=== PATIENT | male | born 1950 | race Caucasian/White ===

== ENCOUNTER 2017-11-08 16:37 | Observation (INO) | payer OTHER ==
[~2017-11-08] VITALS: Ht 325.1 cm; Wt 76.2 kg
[~2017-11-08 16:37] MED LIST: ASPIR 8181 MG PO; DICYCLOMINE HCL10 MG PO; FENOFIBRATE54 MG PO; FISH OIL WITH1 EACH PO; FLOMAX0.4 MG PO; FLUOXETINE HCL20 MG PO; GABAPENTIN600 MG PO; HYDRALAZINE HCL25 MG PO; ISOSORBIDE MONO30 M1 PO; LISINOPRIL5 MG PO; MEN'S MULTI-VI1 EACH PO; METFORMIN HCL500 MG PO; NORCO 7.5-3251 EACH PO; PANTOPRAZOLE SO40 MG PO; PRAVASTATIN SOD40 MG PO; PREVAGEN PO; VENLAFAXINE HCL50 MG PO; VITAMIN B-121000 MCG PO; VITAMIN B-6100 MG PO; VITAMIN D1000 UNI1 PO; VITAMIN D400 UNIT PO
[2017-11-08] MEDS ORDERED: SODIUM CHLORIDE 0.9% 1000ML 1,000 ML IV STA (16:47)
--- NOTE | 2017-11-08 17:44 | Diagnostic Imaging Report ---
Exam: Head CT without contrast History: Syncope Comparison studies: Included brain from intracranial CTA 01/11/2010. Technique: Axial images were obtained from the skull base to the vertex. Coronal and sagittal images reconstructed from the axial data. Intravenous contrast: None Findings: Scalp: No abnormalities. Bones: No fractures, blastic or lytic lesions. Brain sulci: Mildly prominent for age Ventricles: Moderate compensatory dilatation. No hydrocephalus. Extra-axial spaces: No masses, no fluid collection. Parenchyma: Cortical vascular insults. A few scattered hypodensities in the supratentorial white matter are nonspecific but most compatible with chronic small vessel ischemic changes. Sellar/suprasellar region: No abnormalities. Craniocervical junction: Patent foramen magnum. No Chiari one malformation. Incidental findings: Atherosclerotic calcifications in the carotid siphons. IMPRESSION: 1. No acute intracranial abnormalities. 2. Mild chronic microvascular ischemic changes. 3. Generalized volume loss, slightly greater than expected for age, has progressed since 2009. Signed by: Dr. Francois Ortega M.D. on 11/08/2017 5:41 PM
[2017-11-08 17:50] LABS: BASOPHILS % 0.6 % (0.0-1.0); EOSINOPHILS # (AUTO) 0.1 (0.0-0.4); EOSINOPHILS % 1.8 % (0.0-6.0); HEMATOCRIT 38.3 % (38.2-49.6); HEMOGLOBIN 12.8 g/dL (14.0-18.0); LYMPHOCYTES # (AUTO) 0.9 (1.0-3.2); LYMPHOCYTES % 13.9 % (18.0-39.1); MEAN CORPUSCULAR HGB CONC 33.4 g/dL (31-35); MEAN CORPUSCULAR VOLUME 86.8 fL (81-99); MONOCYTES # (AUTO) 0.5 (0.2-0.8); MONOCYTES % 7.2 % (4.4-11.3); NEUTROPHILS # (AUTO) 5.1 (2.1-6.9); NEUTROPHILS % 75.9 % (38.7-80.0); PLATELET COUNT 291 x10e3/uL (140-360); RED BLOOD COUNT 4.41 x10e6/uL (4.3-5.7); RED CELL DISTRIBUTION WIDTH 14.4 % (11.7-14.4)
[2017-11-08 18:10] LABS: ALANINE AMINOTRANSFERASE 12 IU/L (0-55); ALBUMIN 3.9 g/dL (3.5-5.0); ALBUMIN/GLOBULIN RATIO 1.3 (0.8-2.0); ALKALINE PHOSPHATASE 45 IU/L (40-150); ANION GAP 18.1 mmol/L (8-16); BLOOD UREA NITROGEN 18 mg/dL (7-26); BUN/CREATININE RATIO 11 (6-25); CALCIUM 9.1 mg/dL (8.4-10.2); CARBON DIOXIDE 23 mmol/L (22-29); CHLORIDE 101 mmol/L (98-107); CREATINE KINASE 49 IU/L (30-200); CREATININE, SERUM 1.71 mg/dL (0.72-1.25); EST GLOMERULAR FILTRATION RATE 40 ML/MIN (60-); GLUCOSE 105 mg/dL (74-118); LIPASE 60 U/L (8-78); POTASSIUM 3.1 mmol/L (3.5-5.1); SODIUM 139 mmol/L (136-145)
--- NOTE | 2017-11-08 18:27 | Diagnostic Imaging Report ---
PROCEDURE: Frontal and lateral views of the chest. COMPARISON: Patients [facility], , CHEST SINGLE (PORTABLE), 04/24/2017, 16:06. INDICATIONS: SYNCOPE FINDINGS: Lines/tubes: None. Lungs: The lungs are well inflated and clear. There is no evidence of pneumonia or pulmonary edema. Pleura: There is no pleural effusion or pneumothorax. Heart and mediastinum: The heart and the mediastinum are normal. Bones: No acute bony abnormality. IMPRESSION: 1. No acute cardiopulmonary abnormalities. Jose G Nguyễn M.D. Dictated by: Jose G Nguyễn M.D. on 11/08/2017 at 18:36 Electronically approved by: Jose G Nguyễn M.D. on 11/08/2017 at 18:36
--- NOTE | 2017-11-08 20:21 | Diagnostic Imaging Report ---
EXAM: CT of the abdomen and pelvis WITH contrast HISTORY: Abdominal pain COMPARISON: None. TECHNIQUE: The abdomen and pelvis were scanned utilizing a multidetector helical scanner. Coronal and sagittal reformats are provided. PROTOCOL: Routine IV CONTRAST: 100 cc of Isovue-370. ORAL CONTRAST: Water RADIATION DOSE: Total DLP: 603.26 mGy*cm Estimated effective dose: (DLP x 0.015 x size factor) COMPLICATIONS: None FINDINGS: LOWER THORAX: Bibasilar atelectasis, no consolidative pneumonia. Trace pleural effusions. HEPATOBILIARY: A 9 mm right superior hepatic hypodensity, statistically most likely small cyst. No biliary ductal dilatation. Metallic clips in the right upper quadrant of the abdomen are compatible with prior cholecystectomy. SPLEEN: No splenomegaly. PANCREAS: No focal masses or ductal dilatation. ADRENALS: No discrete adrenal nodule. KIDNEYS/URETERS: No hydronephrosis, stones, or solid mass lesions. PELVIC ORGANS/BLADDER: The visualized pelvic organs appear unremarkable. Numerous radiopaque densities in the region of the prostate, compatible with radiation seeds. PERITONEUM / RETROPERITONEUM: No free air or fluid. LYMPH NODES: No pathologically enlarged lymph node. VESSELS: Diffuse scattered atherosclerotic vascular calcifications. GI TRACT: The stomach is distended, compatible with the provided history of oral hydration. Postsurgical changes in the region of the junction of the small bowel and colon. The distal colonic mucosa appears to slightly enhance diffusely. BONES: No aggressive osseous lesion or acute fracture. Status post vertebral augmentation at T10 and T11. SOFT TISSUES: Unremarkable. IMPRESSION: 1. Findings which may be seen in the setting of a nonspecific colitis. 2. Otherwise, no acute CT abnormality. Signed by: Dr. Kevan Breaux D.O., M.M.M. on 11/08/2017 8:18 PM
[2017-11-08] MEDS ORDERED: SODIUM CHLORIDE 0.9% 50ML 50 ML ONE (20:28)
[2017-11-08] MEDS ORDERED: IOPAMIDOL 370 MG/ML 200 ML INFUS..BTL INJ ONE (20:28)
[2017-11-08] MEDS ORDERED: DEXTROSE 50% SYRINGE 50 ML IV PRN (20:45)
[2017-11-08] MEDS ORDERED: ONDANSETRON HCL INJ 2 MG/ML VIAL IV PRN (20:45)
[2017-11-08] MEDS ORDERED: LEVOFLOXACIN 500MG/D5W 100ML 100 ML IV SCH (20:45)
[2017-11-08] MEDS: METRONIDAZOLE 500MG/NS 100ML 100 ML IV SCH (22:00)
[2017-11-08] MEDS: SODIUM CHLORIDE 0.9% 1000ML 1,000 ML IV SCH (22:51)
[2017-11-08] MEDS: INSULIN REGULAR, HUMAN 100 UNIT/1 ML 3ML VIAL SQ SCH (22:51)
[2017-11-09 00:30] VITALS: BP 159/101
[2017-11-09 01:35] LABS: CREATINE KINASE MB 0.4 ng/mL (0.00-5.00)
[2017-11-09 02:58] VITALS: BP 159/95
[2017-11-09] MEDS: METRONIDAZOLE 500MG/NS 100ML 100 ML IV SCH ×2 (04:06→08:12)
[2017-11-09 05:00] VITALS: BP 147/92
[2017-11-09 06:41] LABS: BASOPHILS # (AUTO) 0.1 (0.0-0.1); BASOPHILS % 0.8 % (0.0-1.0); EOSINOPHILS # (AUTO) 0.1 (0.0-0.4); EOSINOPHILS % 1.7 % (0.0-6.0); HEMATOCRIT 36.6 % (38.2-49.6); HEMOGLOBIN 12.2 g/dL (14.0-18.0); LYMPHOCYTES % 12.7 % (18.0-39.1); MEAN CORPUSCULAR HEMOGLOBIN 28.8 pg (28-32); MEAN CORPUSCULAR HGB CONC 33.3 g/dL (31-35); MEAN CORPUSCULAR VOLUME 86.5 fL (81-99); MONOCYTES # (AUTO) 0.6 (0.2-0.8); MONOCYTES % 8.3 % (4.4-11.3); NEUTROPHILS # (AUTO) 5.8 (2.1-6.9); NEUTROPHILS % 76.1 % (38.7-80.0); PLATELET COUNT 293 x10e3/uL (140-360); RED BLOOD COUNT 4.23 x10e6/uL (4.3-5.7); RED CELL DISTRIBUTION WIDTH 14.7 % (11.7-14.4)
[2017-11-09 06:58] LABS: ALBUMIN 3.6 g/dL (3.5-5.0); ALBUMIN/GLOBULIN RATIO 1.2 (0.8-2.0); ANION GAP 12.8 mmol/L (8-16); CALCIUM 9.4 mg/dL (8.4-10.2); CREATININE, SERUM 1.34 mg/dL (0.72-1.25); POTASSIUM 3.8 mmol/L (3.5-5.1)
[2017-11-09] MEDS: INSULIN REGULAR, HUMAN 100 UNIT/1 ML 3ML VIAL SQ SCH (07:30)
[2017-11-09 07:45] VITALS: BP 150/93
[2017-11-09] MEDS ORDERED: HYZAAR 100-12.1 EACH (08:02)
[2017-11-09] MEDS: SODIUM CHLORIDE 0.9% 1000ML 1,000 ML IV SCH (08:12)
[2017-11-09 09:46] LABS: CREATINE KINASE MB 0.4 ng/mL (0.00-5.00)
[2017-11-09] MEDS ORDERED: NON-FORMULARY MEDICATION (Gabapentin 1 TAB) PO SCH (10:00)
[2017-11-09] MEDS ORDERED: DICYCLOMINE HCL 10 MG CAP PO SCH (13:00)
[2017-11-09] MEDS ORDERED: TAMSULOSIN HCL 0.4 MG CAP PO SCH (17:00)
[2017-11-09] MEDS ORDERED: GABAPENTIN 300 MG CAP PO SCH (17:00)
[2017-11-09] MEDS ORDERED: PRAVASTATIN 20 MG TAB PO SCH (21:00)
[2017-11-10] MEDS ORDERED: ASPIRIN 81 MG CHEW TAB PO SCH ×2 (06:00→09:00)
[2017-11-10] MEDS ORDERED: NON-FORMULARY MEDICATION (Lisinopril 30 MG) PO SCH (09:00)
[2017-11-10] MEDS ORDERED: ISOSORBIDE MONONITRATE 30 MG TAB CR PO SCH (09:00)
[2017-11-10] MEDS ORDERED: CHOLECALCIFEROL 1,000 UNIT TAB PO SCH (09:00)
[2017-11-10] MEDS ORDERED: NON-FORMULARY MEDICATION (Pravastatin Sodium 1 TAB) PO SCH (09:00)
[2017-11-10] MEDS ORDERED: PANTOPRAZOLE SOD 40 MG TABEC PO SCH (09:00)
[2017-11-10] MEDS ORDERED: LISINOPRIL 10 MG TAB PO SCH (09:00)
[2017-11-10] MEDS ORDERED: VENLAFAXINE HCL 75 MG CAPCR PO SCH (09:00)
[2017-11-10] MEDS ORDERED: NON-FORMULARY MEDICATION (Venlafaxine Hcl 150 MG) PO SCH (09:00)
--- NOTE | 2018-01-01 18:22 | History and Physical ---
CHIEF COMPLAINT: Generalized weakness. HISTORY OF PRESENT ILLNESS: Patient is a 67-year-old male with generalized weakness. The patient was stable. He lives with his spouse at home. He was awake and alert times 3. He did not complain of any problem at this time. He felt much better after IV fluid was given. No diarrhea or constipation. PAST MEDICAL HISTORY: Chronic angina. History of colon cancer. Prostate cancer. Anxiety and depression. Hypertension. Diabetes type 2. ALLERGIES: OMEPRAZOLE AND BICARBONATE. HOME MEDICATIONS: List reviewed. PAST SURGICAL HISTORY: Partial colon resection. SOCIAL HISTORY: Patient does not smoke or use alcohol. He lives with his spouse. REVIEW OF SYSTEMS: As mentioned. PHYSICAL EXAMINATION: GENERAL: The patient is in no acute distress. VITAL SIGNS: Temperature is 98. Blood pressure 110/52. Pulse rate 80. Respirations 18. HEENT: Normocephalic, atraumatic, anicteric. NECK: Supple grossly. PULMONARY: Clear. CARDIOVASCULAR: Regular rate and rhythm. ABDOMEN: Soft and unremarkable. EXTREMITIES: No cyanosis or edema. NEUROLOGIC: No focal deficit. LABORATORY: Reviewed. IMAGING: Done. IMPRESSION: 1. Acute gastroenteritis with dehydration. 2. Generalized weakness, resolved. PLAN: The patient does want to go home. He had fluid rehydration. He will continue his home medication at home. He does not want to stay in the hospital for any further lab work or imaging done. Job#: [id number]
--- NOTE | 2018-01-01 21:30 | Discharge Summary ---
FINAL DIAGNOSES: Acute gastroenteritis with dehydration, resolved. SUMMARY: Patient is a pleasant, 67-year-old male came in with the problem as above. He did receive IV fluid rehydration. He did better. He was able to tolerate all his diet. The patient wanted to go home and did not want any repeated blood work. The patient is stable and discharged home per his wishes. Job#: [id number]
== END 2017-11-09 10:19 | disposition home or self-care (01) ==
LOC: ER 16:37 → IMCU 11-09 00:04
PROVIDERS: ADMIT Internal Medicine; ATTEND Internal Medicine
DX: R55 Syncope and collapse (principal); E86.0 Dehydration; K52.89 Other specified noninfective gastroenteritis and colitis; I10 Essential (primary) hypertension; E11.9 Type 2 diabetes mellitus without complications; Z85.038 Personal history of other malignant neoplasm of large intestine; Z90.49 Acquired absence of other specified parts of digestive tract
CPT/HCPCS: 36415 ×2; 70450; 71046; 74177; 80053 ×2; 80320; 82550 ×2; 82553 ×2; 82948 ×2; 83605; 83690; 84484 ×2; 85025 ×2; 87040; 93005; 99284; G0378; J1956; J7030 ×2; Q9967

== ENCOUNTER 2019-09-26 03:43 | Observation (INO) | payer OTHER ==
[2019-09-26] VITALS (10 sets, daily range): BP systolic 117–137; BP diastolic 70–93
[~2019-09-26] VITALS: Ht 167.6 cm; Wt 85.3 kg
[~2019-09-26 03:43] MED LIST changes: +HYZAAR 100-12.1 EACH
[2019-09-26] MEDS ORDERED: LIDOCAINE JELLY 2% 10ML URO-JET ONE (04:10)
[2019-09-26] MEDS ORDERED: LIDOCAINE JELLY 2% 10ML URO-JET TOP ONE (04:15)
[2019-09-26 04:30] LABS: BASOPHILS # (AUTO) 0.1 (0.0-0.1); BASOPHILS % 0.7 % (0.0-1.0); EOSINOPHILS # (AUTO) 0.2 (0.0-0.4); EOSINOPHILS % 2.9 % (0.0-6.0); HEMOGLOBIN 13.8 g/dL (14.0-18.0); LYMPHOCYTES # (AUTO) 1.2 (1.0-3.2); LYMPHOCYTES % 16.4 % (18.0-39.1); MEAN CORPUSCULAR HEMOGLOBIN 28.9 pg (28-32); MEAN CORPUSCULAR HGB CONC 32.9 g/dL (31-35); MEAN CORPUSCULAR VOLUME 88.1 fL (81-99); MONOCYTES # (AUTO) 0.7 (0.2-0.8); MONOCYTES % 9.8 % (4.4-11.3); NEUTROPHILS # (AUTO) 4.9 (2.1-6.9); NEUTROPHILS % 69.2 % (38.7-80.0); PLATELET COUNT 270 x10e3/uL (140-360); RED BLOOD COUNT 4.77 x10e6/uL (4.3-5.7); RED CELL DISTRIBUTION WIDTH 14.1 % (11.7-14.4)
[2019-09-26 04:39] LABS: INR 0.87; PROTHROMBIN TIME 12.3 seconds (11.9-14.5)
[2019-09-26] MEDS ORDERED: CEFAZOLIN SOD 1 GM/NS 50ML 100 ML IV ONE ×2 (04:45→05:26)
[2019-09-26 04:48] LABS: PARTIAL THROMBOPLASTIN TIME 29.1 seconds (23.8-35.5)
[2019-09-26 04:49] LABS: ALBUMIN 3.9 g/dL (3.5-5.0); ALBUMIN/GLOBULIN RATIO 1.2 (0.8-2.0); ANION GAP 14.7 mmol/L (8-16); CALCIUM 9.3 mg/dL (8.4-10.2); CREATININE, SERUM 1.72 mg/dL (0.72-1.25); POTASSIUM 3.7 mmol/L (3.5-5.1)
[2019-09-26] MEDS ORDERED: ONDANSETRON HCL INJ 2MG/ML 2ML 2 MG/ML VIAL IV PRN (05:00)
[2019-09-26] MEDS ORDERED: DEXTROSE 5%/0.45% SOD CHL 1,000 ML IV ONE (05:00)
[2019-09-26] MEDS ORDERED: B&O 60MG R/S 60 MG SUPP PR ONE ×2 (05:15→10:54)
[2019-09-26 05:22] LABS: CLARITY,URINE CLOUDY (CLEAR); COLOR,URINE RED (YELLOW); LEUKOCYTE ESTERASE ,URINE NEGATIVE (NEGATIVE); NITRITE,URINE NEGATIVE (NEGATIVE); PROTEIN,URINE DIPSTICK 2+ (NEGATIVE)
[2019-09-26 05:23] LABS: BACTERIA,URINE FEW /HPF; BILIRUBIN,URINE NEGATIVE (NEGATIVE); EPITHELIAL CELLS,URINE FEW /LPF; KETONES,URINE NEGATIVE (NEGATIVE); RBC,URINE >50 /HPF (0-5); URINE UROBILINOGEN 0.2 mg/dL (0.2 - 1)
--- NOTE | 2019-09-26 05:30 | NUR ---
PER ER MD - PT TO BE GIVEN 2GM IV CEFAZOLIN IV;
--- NOTE | 2019-09-26 05:46 | Consultation ---
DATE OF CONSULTATION: 09/26/2019 CONSULTATION REASON FOR EMERGENCY ROOM VISIT: Hematuria. HISTORY: This is a patient who is 69 years old, well known to me from previous hospital visits. The patient was seen by me with gross hematuria in the past. Evaluation had shown that the patient had radiation cystitis and prostatitis. By history, the patient had cancer of the prostate, treated with seed implants and radiation. After that, the patient had colon cancer, treated with resection and radiation. 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 The patient comes today to the emergency room with gross bleeding that started earlier yesterday. He finally came to the emergency room when he went into urinary retention. The patient had a Wilkins catheter placed in the ER by me. I irrigated his bladder. He has clots which cleared out, but he still has hematuria and therefore the patient needs to have cystoscopic examination with fulguration and any other indicated procedure that needs to be done. I have discussed this with the patient, with his , and they agree. We will proceed then with admission and will be taken to the operating room when the next available time. So far, his vital signs are stable. We are awaiting results of his lab work. I will start IV, make him n.p.o., and give him Ancef 2 g. Thank you very much. MD LEVI Grimes/MODL /[id number]
[2019-09-26] MEDS: MORPHINE SULFATE INJ 4 MG/ML INJ 1ML IV PRN ×2 (08:00→20:40)
[2019-09-26] MEDS ORDERED: GLIMEPIRIDE2 MG PO (08:08)
[2019-09-26] MEDS ORDERED: DEPAKOTE SPRIN125 MG (08:08)
[2019-09-26] MEDS ORDERED: DEPAKOTE ER250 MG PO (08:08)
[2019-09-26] MEDS ORDERED: LAMOTRIGINE100 MG PO (08:09)
[2019-09-26] MEDS ORDERED: RISPERIDONE0.5 MG PO (08:14)
[2019-09-26] MEDS ORDERED: LISINOPRIL10 MG PO (08:15)
[2019-09-26 09:01] LABS: CREATINE KINASE MB 0.4 ng/mL (0-5.0)
--- NOTE | 2019-09-26 09:42 | NUR ---
patient c/o chest pain radiating originally from his penis to his abd to his chest. MD Lira notified and ordered morphine and enzymes. BP 141/86, at bedside. worried the chest pain is related to facial droop and paleness. No nausea, diaphoresis, or any other symptoms. 20 minutes post morphine patients no longer in pain, bp 121/78 . patient did not have facial droop or paleness, states he looks normal. 900 cc pink blood tinged urine removes from dolan. Patient perceives dolan bag is pulling on penis, repositioned and patient has less pain
[2019-09-26] MEDS ORDERED: LIDOCAINE HCL 2% LOCAL INJ 5 ML SDV VIAL INJ ONE (09:48)
[2019-09-26] MEDS ORDERED: DEXAMETHASONE SOD PHOS INJ 4 MG/ML VIAL ONE (09:48)
[2019-09-26] MEDS ORDERED: GLYCOPYRROLATE INJ 0.2 MG/ML VIAL ONE (09:48)
[2019-09-26] MEDS ORDERED: LIDOCAINE HCL 2% JELLY 5 ML TUBE ONE (09:48)
[2019-09-26] MEDS ORDERED: SEVOFLURANE INHAL SOLN 250 ML PEN BTL ONE (09:48)
[2019-09-26] MEDS ORDERED: EPHEDRINE SULFATE INJ 50 MG/ML VIAL ONE (09:48)
[2019-09-26] MEDS ORDERED: PROPOFOL IV EMULSION 10 MG/ML 20 ML VIAL ONE (09:48)
[2019-09-26] MEDS ORDERED: IOPAMIDOL 300MG/ML 50ML INFUS..BTL IV ONE (10:54)
[2019-09-26] MEDS ORDERED: MEPERIDINE HCL INJ 25 MG/ML VIAL ONE (12:46)
[2019-09-26] MEDS ORDERED: MORPHINE SULFATE INJ 4 MG/ML INJ 1ML ONE (12:53)
[2019-09-26] MEDS ORDERED: LABETALOL HCL 20 ML ONE (13:00)
[2019-09-26] MEDS ORDERED: MORPHINE SULFATE 2 MG/ML SYR 1ML ONE (13:22)
--- NOTE | 2019-09-26 15:53 | NUR ---
irrigated dolan no clots, no hematuria, urine is only very slightly pink and very clear. at bedside. Patient tolerating diet and liquids in no apparent distress States he has just a slight adb discomfort. Will cont to monitor
--- NOTE | 2019-09-26 17:29 | Operative Report ---
DATE OF PROCEDURE: 09/26/2019 SURGEON: Brandon Vidales MD PREOPERATIVE DIAGNOSES: Hematuria. History of prostate cancer, status post brachytherapy and external beam radiation. History of left colon cancer, status post left hemicolectomy with radiation and chemo. Status post cystoscopy, dilatation of left ureteral stricture, and a non-working left kidney, chronically obstructed. 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 Clinically, transitional cell carcinoma superficial, muscle was taking out of the largest two. Abnormal tissue on the anterior wall of the prostate, this was cut and also sent in for pathological specimen. Urethral meatus stricture. OPERATION PERFORMED: Cystoscopy, retrograde pyelograms, TURBT, fulguration and biopsy of prostate, transurethrally. PROCEDURE IN DETAIL: With the patient under satisfactory general anesthesia, the patient was placed in the supine position on the operating table. Legs were placed in stirrups. Genitalia was then prepped with Betadine soap and solution, and draped in usual manner. A 22-Fijian rigid cystourethroscope was passed per urethra into the bladder. Some small clots were identified, these were let out. Inspection of the bladder revealed tumors in the posterior wall and left sidewall of the bladder. Ureteral orifice on the left side was not identified. Previous biopsy site of the trigone was seen, this was done previously by another urologist. At this point and after observing that, the decision was to do a TURBT. I dilated the urethral meatus to a size #28 Bry sound and I was then able to pass the resectoscope with no problem. I used the bipolar resectoscope, cutting the tumors one other time, settings where on 100 cutting and 60 coagulation. After the tumors were cut using the loop, I changed the loop to a button and increased the coagulation to 80. With that, I was able to obtain good hemostasis. Once that was done, I filled up the bladder with water, removed the instrument. After, I used the [employer] evacuators to remove all of the dual small tumor pieces and sent in for pathological specimen. The prostate was sending separate from the bladder. At this point, a 20-Fijian Wilkins catheter was passed per urethra. The bladder left indwelling to gravity drainage. The patient was then taken to recovery room in satisfactory condition. DISPOSITION: I went outside and talked to the and explained to her the findings. At this point, I have talked to the , showed the pictures, she asked not to tell her that he had clinically cancer of the bladder. I told her very specifically that I had to tell him, that if he asked I will tell him because he has not given her [id number] to just make decisions for him yet, he is to make a decision and sign his own consent. With that in mind, I told her I will be back in the evening and discuss the findings with him. We will have to wait to the pathology report comes back to determine what else we can do. Brandon Vidales MD RRG/MODL /[id number]
[2019-09-26] MEDS ORDERED: B&O 60MG R/S 60 MG SUPP PR PRN (18:30)
[2019-09-26] MEDS ORDERED: ACETAMINOPHEN/CODEINE 300MG - 30MG TAB PO PRN (18:30)
--- NOTE | 2019-09-26 18:37 | NUR ---
Simple irrigation completed. Patient continues to have hematuria but no clots present.
[2019-09-26] MEDS ORDERED: MAGNESIUM HYDROXIDE 30 ML UDC PO PRN (18:45)
--- NOTE | 2019-09-26 19:05 | NUR ---
Report received from morning nurse. Pt alert and oriented to name, lying in bed, HOB 45 degrees. c/o mod genital pain. Bed low and locked. Call light within reach. Will continue to monitor.
[2019-09-26] MEDS ORDERED: FENTANYL CITRATE/PF 100MCG/2 ML INJ ONE (20:03)
[2019-09-27] MEDS ORDERED: ONDANSETRON HCL 4 MG ORAL DISINTEGRATING TAB PO PRN (04:15)
[2019-09-27 05:05] VITALS: BP 120/74
[2019-09-27] MEDS: DIVALPROEX SODIUM 250 MG TAB...DR PO SCH ×2 (05:53→14:23)
[2019-09-27] MEDS ORDERED: ASPIRIN 81 MG CHEW TAB PO SCH (06:00)
[2019-09-27] MEDS ORDERED: GLIMEPIRIDE 2 MG TAB PO SCH (06:00)
--- NOTE | 2019-09-27 06:42 | NUR ---
Pt lying in bed, HOB 75 degrees, denies pain at this time, RR even and unlabored. Wilkins Fr 22 flowing dark margie urine with a tinge of straw colored streaks. No acute distress noted.
--- NOTE | 2019-09-27 07:00 | NUR ---
BEDSIDE SHIFT RECEIVED FROM THE SOFTWARE ANALYST RN.PT IS AAOX4. EDUCATED PT ABOUT FALL PRECAUTIONS. CALL LIGHT WITH IN EASY REACH. INSTRUCTED PT TO USE CALL LIGHT FOR ALL THE NEEDS. PT VERBALIZED UNDERSTANDING. BED IS LOW AND LOCKED. SIDE RAILS X2. PT DENIES NEEDS AT THIS TIME.
[2019-09-27 07:36] VITALS: BP 138/80
[2019-09-27 07:52] VITALS: BP 138/80
[2019-09-27] MEDS ORDERED: NON-FORMULARY MEDICATION (Pravastatin Sodium 1 TAB) PO SCH (09:00)
[2019-09-27] MEDS ORDERED: LAMOTRIGINE 100 MG TAB PO SCH (09:00)
[2019-09-27] MEDS ORDERED: TAMSULOSIN HCL 0.4 MG CAP PO SCH (09:00)
[2019-09-27] MEDS ORDERED: LISINOPRIL 10 MG TAB PO SCH (09:00)
[2019-09-27] MEDS ORDERED: PRAVASTATIN 20 MG TAB PO SCH (09:00)
[2019-09-27] MEDS ORDERED: NON-FORMULARY MEDICATION (Gabapentin 1 TAB) PO SCH (09:00)
[2019-09-27] MEDS ORDERED: GABAPENTIN 300 MG CAP PO SCH ×2 (09:00)
[2019-09-27] MEDS ORDERED: DIVALPROEX SODIUM PO SCH (09:00)
--- NOTE | 2019-09-27 10:00 | NUR ---
PAGED DR. VENCES REGARDING PT DIET. REGULAR DIET PER THE
--- NOTE | 2019-09-27 11:00 | NUR ---
CRYSTAL VENCES OFFICE AND INFORMED ABOUT PT D/C.
--- NOTE | 2019-09-27 11:27 | NUR ---
CALL BACK FROM DR. VENCES. WANTS TO SEE THE PT BEFORE D/C.
[2019-09-27 11:47] VITALS: BP 138/85
--- NOTE | 2019-09-27 14:00 | NUR ---
DR. VENCES AT BEDSIDE. OKAY TO D/C PT PER DR. VENCES.
[2019-09-27] MEDS ORDERED: NORVASC5 MG PO (14:27)
[2019-09-27] MEDS ORDERED: SENNA LAX8.6 MG (14:28)
[2019-09-27] MEDS ORDERED: ZOFRAN4 MG PO (14:28)
[2019-09-27] MEDS ORDERED: CIPRO500 MG PO (14:28)
[2019-09-27] MEDS ORDERED: NORCO 7.5-3251 EACH PO (14:30)
[2019-09-27] MEDS ORDERED: DETROL LA4 MG PO (14:32)
--- NOTE | 2019-09-27 15:45 | NUR ---
PT DISCHARGED HOME SAFELY WITH HIS . LEG BAG PLACED PER THE INSTRUCTION FROM DR. VENCES. PT GOING HOME WITH MORALES. MORALES CARE INSTRUCTIONS GIVEN TO THE PT AND AT BEDSIDE. PT AND AT BEDSIDE VERBALIZED UNDERSTANDING. RX GIVEN. IV REMOVED. TIP INTACT. DRESSING APPLIED. PT DENIED FURTHER NEEDS.
[2019-09-27 15:50] VITALS: BP 142/87
--- NOTE | 2019-09-27 16:41 | Progress Note ---
DATE: 09/27/2019 The patient today is doing well and he was asleep when I saw him. Urine is clear. I have talked to the . He has not offered any complaints today. He has tolerated diet as well. I discussed with the patient and the yesterday that if the urine was clear today, he will go home. He has not complained of any bladder spasm. I will see him again on Monday. By then I should have the report of the specimens that I removed from his bladder. I discussed with him that after that 2 weeks later I will see him in the office, check his urine and order CT scan of the abdomen and pelvis for staging. This after the inflammation from the resection of the bladder goes down. I discussed we them removing the catheter on Monday which was the reason why he would be coming to my office and he will be going home with a leg bag and overnight bag, Detrol 2 mg, and tramadol 50. MD LEVI Grimes/BILLY /[id number]
[2019-09-27] MEDS ORDERED: RISPERIDONE 0.5 MG TAB PO SCH (17:00)
--- NOTE | 2019-09-28 09:47 | Discharge Summary ---
FINAL DIAGNOSES: 1. Gross hematuria, urinary retention. 2. Status post Wilkins catheter placed, cystoscopy. SUMMARY: The patient is a 69-year-old male, who came into the hospital because of urinary retention. The patient's Wilkins catheter was placed. He underwent cystoscopy done by Dr. Brandon Vidales. The patient is otherwise stable. Urine looked clean. No complication. The patient will be discharged home today. Follow up with Dr. Brandon Vidales as an outpatient. The patient will be discharged home with some adjustment of his medication. We would discontinue aspirin and lisinopril. He will start on Norvasc 5 mg daily, Cipro 500 mg b.i.d. for 7 days, senna S 1 tablet b.i.d., Zofran ODT and pain medication, Rosewood 7.5 mg 1 tablet q.6 hours p.r.n. for pain. The patient is otherwise stable. He will go home today. Follow up with Dr. Brandon Vidales as planned. MD MARIJA Patterson/BILLY /[id number]
--- OUTSIDE RECORDS SUMMARY | 2019-10-04 11:14 | XMS REPORT ---
Author Author [facility] Address Unknown Phone Unavailable Care Team Providers Care Manager Technical Services Name Role Phone Sudeep SEAMAN Unavailable Unavailable Payers Payer Name Policy Type Policy Number Effective Date Expiration Date Problems This patient has no known problems. Allergies, Adverse Reactions, Alerts Allergy Name Allergy Type Status Severity Reaction(s) Onset Date Inactive Date Treating Clinician Comments sodium bicarbonate DA Active CO 2019-02-20 00:00:00 omeprazole DA Active CO 2019-02-20 00:00:00 sodium bicarbonate FA Active CO 2019-02-20 00:00:00 omeprazole DA Active DC 2016-11-14 00:00:00 Medications This patient has no known medications. Encounters Start Date/Time End Date/Time Encounter Type Admission Type Attending Clinicians Care Facility Care Department Encounter ID 2019-08-04 00:12:00 2019-08-04 00:12:00 Emergency E [facility] [id number] 2018-01-13 00:00:00 2018-01-14 00:00:00 [facility] [id number] Results Test Description Test Time Test Comments Text Results Atomic Results Result Comments PROTHROMBIN TIME 2019-03-31 12:45:00 PROTHROMBIN TIME PATIENT (test code=PTP) 11.8 seconds 9.0-14.0 INTERNATIONAL NORMAL RATIO (test code=INR) 1.0 0.8-1.2 The therapeutic range for oral anticoagulant therapy formost indications is an international normalized ratio (INR)of between 2.0 and 3.0. The recommended therapeutic INRrange for various clinical situations is listed below: Clinical Situation INR range Pulmonary e mbolism treatment (2.0-3.0)Venous thrombosis treatmentVenous thrombosis prophylaxis (high risk surgery)Prevention of systemic embolism from: Acute myocardial infarction Valvular heart disease Atrial fibrillation Mechanical prosthetic heart valves (2.5-3.5) IS PATIENT ON ANTICOAGULANTS? NTHROMBOPLASTIN TIME [id number] 12:45:00* Test Item Value Reference Range Comments THROMBOPLASTIN TIME PARTIAL (test code=PTT) 35.5 seconds 25.0-36.5 IS PATIENT ON ANTICOAGULANTS? NCBC W/O [id number] 12:12:00* Test Item Value Reference Range Comments WHITE BLOOD CELL (test code=WBC) 9.6 K/mm3 4.5-12.5 RED BLOOD CELL (test code=RBC) 4.85 mill/mm3 4.0-5.8 HEMOGLOBIN (test code=HGB) 13.0 gram/dL 13.0-17.5 HEMATOCRIT (test code=HCT) 41.4 % 42.0-52.0 MEAN CELL VOLUME (test code=MCV) 85.4 fL 80-98 MEAN CELL HGB (test code=MCH) 26.8 picogram 27.0-33.0 MEAN CELL HGB CONCETRATION (test code=MCHC) 31.4 gram/dL 33.0-36.0 RED CELL DISTRIBUTION WIDTH (test code=RDW) 14.7 % 11.6-16.2 PLATELET COUNT (test code=PLT) 312 K/mm3 150-450 MEAN PLATELET VOLUME (test code=MPV) 9.5 fL 6.7-11.0 URINALYSIS [id number] 12:11:00* Test Item Value Reference Range Comments UA COLOR (test code=COLU) Light-Yellow YELLOW UA APPEARANCE (test code=APPU) CLEAR CLEAR UA GLUCOSE DIPSTICK (test code=DGLUU) NEGATIVE mg/dL NEGATIVE UA BILIRUBIN DIPSTICK (test code=BILU) NEGATIVE mg/dL NEGATIVE UA KETONE DIPSTICK (test code=KETU) NEGATIVE mg/dL NEGATIVE UA SPECIFIC GRAVITY (test code=SGU) 1.006 1.001-1.035 UA BLOOD DIPSTICK (test code=CAROL) 0.03 mg/dL (Trace) mg/dL NEGATIVE UA PH DIPSTICK (test code=MARCIE) 5.5 5.0-8.0 UA PROTEIN DIPSTICK (test code=PROU) NEGATIVE mg/dL NEGATIVE UA UROBILINIOGEN DIPSTICK (test code=URO) Normal mg/dL NEGATIVE UA NITRITE DIPSTICK (test code=ADRIANA) NEGATIVE NEGATIVE UA LEUKOCYTE ESTERASE W REFLEX (test code=LEUUR) NEGATIVE Shashank/uL NEGATIVE UA WBC (test code=WBCU) 0-5 per HPF 0-5 UA RBC (test code=RBCU) 0-2 #/HPF 0-5 UA EPITHELIAL CELLS (test code=EPIU) per HPF Few UA BACTERIA (test code=BACU) per HPF NONE Urine Source? Clean CatchURINALYSIS [id number] 12:11:00* Test Item Value Reference Range Comments UA COLOR (test code=COLU) Light-Yellow YELLOW UA APPEARANCE (test code=APPU) CLEAR CLEAR UA GLUCOSE DIPSTICK (test code=DGLUU) NEGATIVE mg/dL NEGATIVE UA BILIRUBIN DIPSTICK (test code=BILU) NEGATIVE mg/dL NEGATIVE UA KETONE DIPSTICK (test code=KETU) NEGATIVE mg/dL NEGATIVE UA SPECIFIC GRAVITY (test code=SGU) 1.006 1.001-1.035 UA BLOOD DIPSTICK (test code=CAROL) 0.03 mg/dL (Trace) mg/dL NEGATIVE UA PH DIPSTICK (test code=MARCIE) 5.5 5.0-8.0 UA PROTEIN DIPSTICK (test code=PROU) NEGATIVE mg/dL NEGATIVE UA UROBILINIOGEN DIPSTICK (test code=URO) Normal mg/dL NEGATIVE UA NITRITE DIPSTICK (test code=ADRIANA) NEGATIVE NEGATIVE UA LEUKOCYTE ESTERASE W REFLEX (test code=LEUUR) NEGATIVE Shashank/uL NEGATIVE UA WBC (test code=WBCU) 0-5 per HPF 0-5 UA RBC (test code=RBCU) 0-2 #/HPF 0-5 UA EPITHELIAL CELLS (test code=EPIU) None seen per HPF Few UA BACTERIA (test code=BACU) NONE SEEN per HPF NONE Urine Source? Clean CatchURINALYSIS [id number] 12:10:00* Test Item Value Reference Range Comments UA COLOR (test code=COLU) Light-Yellow YELLOW UA APPEARANCE (test code=APPU) CLEAR CLEAR UA GLUCOSE DIPSTICK (test code=DGLUU) NEGATIVE mg/dL NEGATIVE UA BILIRUBIN DIPSTICK (test code=BILU) NEGATIVE mg/dL NEGATIVE UA KETONE DIPSTICK (test code=KETU) NEGATIVE mg/dL NEGATIVE UA SPECIFIC GRAVITY (test code=SGU) 1.006 1.001-1.035 UA BLOOD DIPSTICK (test code=CAROL) 0.03 mg/dL (Trace) mg/dL NEGATIVE UA PH DIPSTICK (test code=MARCIE) 5.5 5.0-8.0 UA PROTEIN DIPSTICK (test code=PROU) NEGATIVE mg/dL NEGATIVE UA UROBILINIOGEN DIPSTICK (test code=URO) Normal mg/dL NEGATIVE UA NITRITE DIPSTICK (test code=ADRIANA) NEGATIVE NEGATIVE UA LEUKOCYTE ESTERASE W REFLEX (test code=LEUUR) NEGATIVE Shashank/uL NEGATIVE UA WBC (test code=WBCU) per HPF 0-5 UA RBC (test code=RBCU) per HPF 0-5 UA EPITHELIAL CELLS (test code=EPIU) per HPF Few UA BACTERIA (test code=BACU) per HPF NONE Urine Source? Clean CatchBASIC METABOLIC [id number] 12:02:00* Test Item Value Reference Range Comments SODIUM (test code=NA) 137 mmol/L 136-145 POTASSIUM (test code=K) 3.9 mmol/L 3.5-5.1 CHLORIDE (test code=CL) 102.0 mmol/L 98-107 CARBON DIOXIDE (test code=CO2) 29.0 mmol/L 21-32 ANION GAP (test code=GAP) 9.9 10-20 GLUCOSE (test code=GLU) 103 mg/dL 74-106 BLOOD UREA NITROGEN (test code=BUN) 18 mg/dL 7-18 GLOMERULAR FILTRATION RATE (test code=GFR) 27 mL/min >=60 Estimated GFR by using Modified MDRD formula.Chronic kidney disease is defined as either kidney damageor GFR <60 mL/min/1.73 m2 for >3 months. CREATININE (test code=CREAT) 2.40 mg/dL 0.7-1.3 BUN/CREATININE RATIO (test code=BUN/CREA) 7.5 10-20 CALCIUM (test code=CA) 8.7 mg/dL 8.5-10.1 HEPATIC FUNCTION [id number] 12:02:00* Test Item Value Reference Range Comments TOTAL PROTEIN (test code=PROT) 7.1 gram/dL 6.4-8.2 ALBUMIN (test code=ALB) 3.5 g/dL 3.4-5.0 GLOBULIN (test code=GLOB) 3.6 gram/dL 2.7-4.2 ALBUMIN/GLOBULIN RATIO (test code=A/G) 1.0 0.75-1.50 BILIRUBIN TOTAL (test code=BILT) 0.40 mg/dL 0.0-1.0 BILIRUBIN DIRECT (test code=BILD) 0.10 mg/dL 0.0-0.20 SGOT/AST (test code=AST) 12 IUnit/L 15-37 SGPT/ALT (test code=ALT) 21 IUnit/L 12-78 ALKALINE PHOSPHATASE TOTAL (test code=ALKP) 68 IUnit/L 45-117 Note change in reference range due to change in reagent. [id number] 12:02:00* Test Item Value Reference Range Comments LIPASE (test code=LIP) 213 U/L 73.0-393.0 BASIC METABOLIC [id number] 11:51:00* Test Item Value Reference Range Comments SODIUM (test code=NA) 137 mmol/L 136-145 POTASSIUM (test code=K) 3.9 mmol/L 3.5-5.1 CHLORIDE (test code=CL) 102.0 mmol/L 98-107 CARBON DIOXIDE (test code=CO2) mmol/L 21-32 ANION GAP (test code=GAP) 10-20 GLUCOSE (test code=GLU) mg/dL 74-106 BLOOD UREA NITROGEN (test code=BUN) mg/dL 7-18 GLOMERULAR FILTRATION RATE (test code=GFR) mL/min >=60 CREATININE (test code=CREAT) mg/dL 0.7-1.3 BUN/CREATININE RATIO (test code=BUN/CREA) 10-20 CALCIUM (test code=CA) mg/dL 8.5-10.1 HEPATIC FUNCTION [id number] 11:51:00* Test Item Value Reference Range Comments TOTAL PROTEIN (test code=PROT) gram/dL 6.4-8.2 ALBUMIN (test code=ALB) g/dL 3.4-5.0 GLOBULIN (test code=GLOB) gram/dL 2.7-4.2 ALBUMIN/GLOBULIN RATIO (test code=A/G) 0.75-1.50 BILIRUBIN TOTAL (test code=BILT) mg/dL 0.0-1.0 BILIRUBIN DIRECT (test code=BILD) mg/dL 0.0-0.20 SGOT/AST (test code=AST) IUnit/L 15-37 SGPT/ALT (test code=ALT) IUnit/L 12-78 ALKALINE PHOSPHATASE TOTAL (test code=ALKP) IUnit/L 45-117 [id number] 11:51:00* Test Item Value Reference Range Comments LIPASE (test code=LIP) U/L 73.0-393.0 - CT ABD PELVIS W/O [id number] 11:08:00 Name: DANIKA MAYA [facility] : 1950 Age/S: 68 / M [address] [facility] Unit #: [id number] Loc: [place] [address] Phys: Rosalva Kebede MD Acct: [id number] Dis Date: Status: REG ER PHONE #: [phone] Exam Date: 03/31/2019 1036 FAX #: [phone] Reason: pain EXAMS: CPT CODE: [id number] CT ABD PELVIS W/O CONT 30047 HISTORY: Abdominal pain. COMPARISON: CT scan from February 15, 2019. CT of abdomen and pelvis: Stone protocol. Automated exposure control CT ABDOMEN: The lung bases are clear. Dependent changes. Noncontrast liver demonstrating 1 cm low-attenuation lesion in the dome of the liver which appears to be simple cyst and is unchanged from previous exam. No other lesions. The liver is not enlarged. Patient is post cholecystectomy. Unremarkable spleen. The stomach distended incompletely however it is normal in appearance. Noncontrast pancreas and adrenals are normal. Right kidney is free from hydroureteronephrosis. Severe left hydroureteronephrosis noted again with perinephric fat stranding. This pattern appears essentially unchanged from the previous examination. No calyceal or obstructing ureteral stones visible. No pathologic adenopathy. Mild atherosclerotic change of the abdominal and pelvic vasculature. No bowel obstruction. Moderate distention of the large bowel. Anastomotic sutures in the mid right colon with the small bowel. CT PELVIS: Patient is post partial ri ght hemicolectomy with anastomotic sutures in the right colon. Moderate d istention of the entire colon with stool and fluid. Small bowel loops are unremarkable. Hydroureter on the left with zone of transition in the far distal left ureter at the mid sacral level without obstructing sto ne. This may suggest chronic stricture. Direct visualization would be of value. Urinary bladder is unremarkable. The prostate demonstrating mult iple brachytherapy seeds. Seminal vesicles are unremarkable. Right urete r is not enlarged. No pelvic pathologic adenopathy. The sub cutaneous tissues and the musculature are normal in appearance. PAGE 1 Signed Report (CONTINUED) Name: DO JAY MAYA [facility] : 1950 Age/ S: 68 / M [address] [facility] Unit #: [id number] Loc: [place] [address] Phys: Rosalva Kebede MD Acct: [id number] Dis Date: Status: REG ER PHONE #: [phone] Exam Date: 03/31/2019 1036 FAX #: [phone] Reason: pain EXAMS: CPT CODE: [id number] CT ABD PELVIS W/O CONT 85323 <Continued> No lytic or blastic lesions are noted within the bony skeleton. Kyphoplasty changes/cement within the T10 and T11 vertebral bodies. IMPRESSION: Severe left hydroureteronephrosis noted again which appear essentially unchanged from the February 15, 2019 exam. Extensive perinephric fat stranding. No obstructing calyceal or ureteral stone. Zone of transition with normal caliber aorta in the far distal ureter at the mid left sacral level without mass or stone or obstructing lesion. This suggests stricture. Direct visualization recommended. Right ureter is unremarkable. No hydroureteronephrosis or calyceal stones on the right. Unremarkable urinary bladder. Brachytherapy seeds within the prostate. at 1108 Reported and signed by: Yvon Brown M.D. CC: Brandon Vidales M.D.; Rosalva Kebede MD Technologist:Kimber Macdonald RT(R),CT CTDI: DLP: Trnscb Date/Time: 03/31/2019 (4506) t.SDR.TH4 Orig Print D/T: S: 03/31/2019 (8480) PAGE 2 Signed Report - NM KIDNEY SCAN [id number] 14:12:00 FAX: Brandon Holt MD [phone] [place]: St: REG Name: DANIKA THORNTON [facility] : [birth year] Age/S: 68/M [address] [facility] Unit #: [id number] Loc: [place] [address] Phys: Brandon Vidales MD Acct: [id number] Dis Date: Status: REG CLI PHONE #: [phone] Exam Date: 03/20/2019929 FAX #: [phone] Reason: HYDRONEPHROSIS EXAMS: CPT CODE: [id number] NM KIDNEY SCAN W/FLOW 48294 HISTORY: Hydronephrosis. COMPARISON: None available. Renal Lasix scan: 10.4 mCi of prasanth hnetium 99m MAG3 administered. 40 mg of Lasix administered at 20 minutes. Normal uptake and initial rise on the right side on the time activ ity curve. Normal excretion which increases after Lasix administration. No uptake within the left kidney. No excretion. Static images demonstrate no uptake either on the left side with normal uptake on the ri ght. Percentage uptake is 14.8 % on the left and 85.2% on the righ t side. Time to peak is delayed delayed on the right side at 13.5 minutes. Static images do demonstrate excretion as well on the right side. IMPRESSION: Normal uptake is seen in the right kidney with excretion noted normally especially after Lasix administration. No evidence for obstruction. No hydronephrosis. No signi ficant uptake or excretion noted on the left side suggesting nonfunction ing kidney. at 1412 Reported and signed by: Yvon Brown M.D. CC: Brandon Vidales M.D. Technologist: MARLA MOREIRA James Trnscrd Date/Time/By: 03/20/2019 (4988) : By: [email or web address] Orig Print D/T: S: 03/20/2019 (7570) PAGE 1 Signed Report - XR CYSTOURETHRO [id number] 17:36:00 FAX: Brandon Holt MD [phone] [place]: St: REG Name: Zeus JOSESTAUFFERDANIKA CHRISTIANSONKLE [facility] : [birth year] Age/S: 68/M [address] [facility] Unit #: [id number] Loc: [place] [address] Phys: Brandon Vidales MD Acct: [id number] Dis Date: Status: [place] [facility] [place] #: [phone] Exam Date: 02/27/2019 3640 FAX #: [phone] Reason: CYSTO RETRO EXAMS: CPT CODE: [id number] XR CYSTOURETHRO RETRO 39482 TECHNIQUE - XR CYSTOURETHRO RETRO . COMPARISON: None provided. HISTORY: 68 years Male CYSTO RETRO FINDINGS: 72.0 seconds fluoroscopy time. 15.07 mCi. 24 images. Contrast in the c ollecting systems bilaterally. Left ureter stent. Please see the intraoper ative dictation. IMPRESSION: 72.0 seconds fluo roscopy time. 15.07 mCi. 24 images. Contrast in the collecting systems b ilaterally. Left ureter stent. Please see the intraoperative dictation. at 7231 Reported and signed by: Arturo Urrutia M.D. CC: Brandon Vidales M.D. Technologist: Natalee Talavera(R) Trnscrd Date/Time/By: 02/27/2019 ( 2635) : By: Marcin Orig Print D/T: S: 02/27/2019 (2575) PAGE 1 Signed Report [id number] 12:49:00* Test Item Value Reference Range Comments GLUBED (test code=GLUBED) 81 mg/dL 74-106 Performed by certified well drill operator rotary drill at [facility]3] CBC W/AUTO [id number] 13:46:00* Test Item Value Reference Range Comments WHITE BLOOD CELL (test code=WBC) 7.2 K/mm3 4.5-12.5 RED BLOOD CELL (test code=RBC) 4.72 mill/mm3 4.0-5.8 HEMOGLOBIN (test code=HGB) 12.9 gram/dL 13.0-17.5 HEMATOCRIT (test code=HCT) 40.5 % 42.0-52.0 MEAN CELL VOLUME (test code=MCV) 85.8 fL 80-98 MEAN CELL HGB (test code=MCH) 27.3 picogram 27.0-33.0 MEAN CELL HGB CONCETRATION (test code=MCHC) 31.9 gram/dL 33.0-36.0 RED CELL DISTRIBUTION WIDTH (test code=RDW) 15.0 % 11.6-16.2 RED CELL DISTRIBUTION WIDTH SD (test code=RDW-SD) 47.0 fL 37.0-51.0 PLATELET COUNT (test code=PLT) 341 K/mm3 150-450 MEAN PLATELET VOLUME (test code=MPV) 9.8 fL 6.7-11.0 NEUTROPHIL % (test code=NT%) 78.4 % 39.0-69.0 IMMATURE GRANULOCYTE % (test code=IG%) 0.4 % 0.0-5.0 LYMPHOCYTE % (test code=LY%) 9.6 % 25.0-55.0 MONOCYTE % (test code=MO%) 8.2 % 0.0-10.0 EOSINOPHIL % (test code=EO%) 2.6 % 0.0-5.0 BASOPHIL % (test code=BA%) 0.8 % 0.0-1.0 NUCLEATED RBC % (test code=NRBC%) 0.0 % 0-0 NEUTROPHIL # (test code=NT#) 5.64 K/mm3 1.8-7.7 IMMATURE GRANULOCYTE # (test code=IG#) 0.03 x10 3/uL 0-0.03 LYMPHOCYTE # (test code=LY#) 0.69 K/mm3 1.0-5.0 MONOCYTE # (test code=MO#) 0.59 K/mm3 0-0.8 EOSINOPHIL # (test code=EO#) 0.19 K/mm3 0.0-0.5 BASOPHIL # (test code=BA#) 0.06 K/mm3 0.0-0.2 NUCLEATED RBC # (test code=NRBC#) 0.00 K/mm3 0.0-0.1 MANUAL DIFF REQUIRED (test code=MDIFF) NO COMPREHENSIVE METABOLIC [id number] 13:42:00* Test Item Value Reference Range Comments SODIUM (test code=NA) 141 mmol/L 136-145 POTASSIUM (test code=K) 3.9 mmol/L 3.5-5.1 CHLORIDE (test code=CL) 106.0 mmol/L 98-107 CARBON DIOXIDE (test code=CO2) 31.0 mmol/L 21-32 ANION GAP (test code=GAP) 7.9 10-20 GLUCOSE (test code=GLU) 104 mg/dL 74-106 BLOOD UREA NITROGEN (test code=BUN) 14 mg/dL 7-18 GLOMERULAR FILTRATION RATE (test code=GFR) 30 mL/min >=60 Estimated GFR by using Modified MDRD formula.Chronic kidney disease is defined as either kidney damageor GFR <60 mL/min/1.73 m2 for >3 months. CREATININE (test code=CREAT) 2.20 mg/dL 0.7-1.3 BUN/CREATININE RATIO (test code=BUN/CREA) 6.4 10-20 TOTAL PROTEIN (test code=PROT) 8.0 gram/dL 6.4-8.2 ALBUMIN (test code=ALB) 3.7 g/dL 3.4-5.0 GLOBULIN (test code=GLOB) 4.3 gram/dL 2.7-4.2 ALBUMIN/GLOBULIN RATIO (test code=A/G) 0.9 0.75-1.50 CALCIUM (test code=CA) 9.5 mg/dL 8.5-10.1 BILIRUBIN TOTAL (test code=BILT) 0.40 mg/dL 0.0-1.0 SGOT/AST (test code=AST) 16 IUnit/L 15-37 SGPT/ALT (test code=ALT) 25 IUnit/L 12-78 ALKALINE PHOSPHATASE TOTAL (test code=ALKP) 74 IUnit/L 45-117 Note change in reference range due to change in reagent. COMPREHENSIVE METABOLIC [id number] 13:38:00* Test Item Value Reference Range Comments SODIUM (test code=NA) 141 mmol/L 136-145 POTASSIUM (test code=K) 3.9 mmol/L 3.5-5.1 CHLORIDE (test code=CL) 106.0 mmol/L 98-107 CARBON DIOXIDE (test code=CO2) mmol/L 21-32 ANION GAP (test code=GAP) 10-20 GLUCOSE (test code=GLU) mg/dL 74-106 BLOOD UREA NITROGEN (test code=BUN) mg/dL 7-18 GLOMERULAR FILTRATION RATE (test code=GFR) mL/min >=60 CREATININE (test code=CREAT) mg/dL 0.7-1.3 BUN/CREATININE RATIO (test code=BUN/CREA) 10-20 TOTAL PROTEIN (test code=PROT) gram/dL 6.4-8.2 ALBUMIN (test code=ALB) g/dL 3.4-5.0 GLOBULIN (test code=GLOB) gram/dL 2.7-4.2 ALBUMIN/GLOBULIN RATIO (test code=A/G) 0.75-1.50 CALCIUM (test code=CA) mg/dL 8.5-10.1 BILIRUBIN TOTAL (test code=BILT) mg/dL 0.0-1.0 SGOT/AST (test code=AST) IUnit/L 15-37 SGPT/ALT (test code=ALT) IUnit/L 12-78 ALKALINE PHOSPHATASE TOTAL (test code=ALKP) IUnit/L 45-117 - XR CHEST 2 [id number] 13:36:00 FAX: Brandon Holt MD [phone] [place]: O St: PRE Name: DANIKA THORNTON [facility] : [birth year] Age/S: 68/M [address] [facility] Unit #: [id number] Loc: [place] [address] Phys: Brandon Vidales MD Acct: [id number] Dis Date: Status: PRE SDC PHONE #: [phone] Exam Date: 02/20/2019 1241 FAX #: [phone] Reason: PRE OP EXAMS: CPT CODE: [id number] XR CHEST 2 V 44647 HISTORY: Preop. COMP ARISON: June 20, 2015. AP and lateral view of the chest: No acute infiltrates, effusion or congestion. Cardiac silhouette is normal. DJD of the dorsal spine with kyphoplasty change in the lower do rsal spine at T10 and T11 levels. Cervical fusion in the lower neck. IMPRESSION: No acute infiltrates, effusion or congestion. at 0871 Reported and signed by: Yvon Brown M.D. CC: Brandon Vidales M.D. Technologist: RT Hesham(R) Trnscrd Date/Time/By: 02/20/2019 (2844) : By: [email or web address] Orig Print D/T: S: 02/20/2019 (8707) PAGE [address] ABDOMEN/PELVIS W [place] [address] Patient Name: DANIKA MAYA MR #: [id number] : 1950 Age/Sex: 67/M Req #: [id number] Adm Physician: Ordered by: LUZ UNDERWOOD DIAPHRAGM BUILDER Report #: [id number] Location: ER Room/Bed: Procedure: [id number] CT/CT ABDOMEN/PELVIS W Ex am Date: 11/08/17 Exam Time: 1944 REPORT STATUS : Signed EXAM: CT of the abdomen and pelvis WITH contrast HISTORY: Abd ominal pain COMPARISON: None. TECHNIQUE: The abdomen and pelvis were scanned utilizing a multidetector helical scanner. Coronal and sagittal refor mats are provided. PROTOCOL: Routine IV CONTRAST: 100 cc of Isovue-370. ORAL CONTRAST: Water RADIATIO N DOSE: Total DLP: 603.26 mGy*cm Estimated effective dos e: (DLP x 0.015 x size factor) COMPLICATIONS: None FINDING S: LOWER THORAX: Bibasilar atelectasis, no consolidative pneumonia. Trace pleural effusions. HEPATOBILIARY: A 9 mm right superior hepatic hypode nsity, statistically most likely small cyst. No biliary ductal dilatation. Metallic clips in the right upper quadrant of the abdomen are compatible with prior cholecystectomy. SPLEEN: No splenomegaly. PANCREAS: No focal masses or ductal dilatation. ADRENALS: No discrete adrenal nodule. KIDNEYS/URETERS: No hydronephrosis, stones, or solid mass lesions. PELVIC ORGANS/BLADDER: The visualized pelvic organs appear unremarkable. Numerous radiopaque densi ties in the region of the prostate, compatible with radiation seeds. ACLOS TONEUM / RETROPERITONEUM: No free air or fluid. LYMPH NODES: No pathologically enlarged lymph node. VESSELS: Diffuse scattered atherosclerotic vascular calc ifications. GI TRACT: The stomach is distended, compatible with the provided h istory of oral hydration. Postsurgical changes in the region of the junction of the small bowel and colon. The distal colonic mucosa appears to slightly e nhance diffusely. BONES: No aggressive osseous lesion or acute fracture. S tatus post vertebral augmentation at T10 and T11. SOFT TISSUES: Unremarkable . IMPRESSION: 1. Findings which may be seen in the setting of a nons pecific colitis. 2. Otherwise, no acute CT abnormality. Signed by: Dr. Cl Stewart D.O., M.M.M. on 11/08/2017 8:18 PM Dictated By: HAILEY STEWART DO 17 Transcribed By: JOLANTA MEJIA on 11/08/172017 COPY TO: LUZ UNDERWOOD NP CT BRAIN WO [place] [address] Patient Name: DANIKA MAYA MR #: [id number] : 1950 Age/Sex: 67/M Req #: [id number] Adm Physician: Ordered by: LUZ UNDERWOOD NP Report #: [id number] Location: ER Room /Bed: Procedure: [id number] CT/CT BRAIN WO Exam Date: 11/08/17 Exam Time: 1700 REPORT STATUS: Signed Exam: Head CT without contrast History: Syncope Comparison studies: In cluded brain from intracranial CTA 01/11/2010. Technique: Axial images wer e obtained from the skull base to the vertex. Coronal and sagittal images shania nstructed from the axial data. Intravenous contrast: None Findings: Scalp: No abnormalities. Bones: No fractures, blastic or lytic lesions. B rain sulci: Mildly prominent for age Ventricles: Moderate compensatory dilatat ion. No hydrocephalus. Extra-axial spaces: No masses, no fluid collection. Parenchyma: Cortical vascular insults. A few scattered hypodensities in the supratentorial white matter are nonspecific but most compatible with chronic small vessel ischemic changes. Sellar/suprasellar region: No abnormaliti es. Craniocervical junction: Patent foramen magnum. No Chiari one malformation . Incidental findings: Atherosclerotic calcifications in the carotid sip hons. IMPRESSION: 1. No acute intracranial abnormalities. 2. Mild chronic microvascular ischemic changes. 3. Generalized volume loss, slightly greater than expected for age, has progressed since 2009. Signed by: Dr. Tee Lai M.D. 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 COMPARISON: [facility], DX, CHEST SINGLE (PORTABLE), 04/24/2017, 16:06. IN DICATIONS: SYNCOPE FINDINGS: Lines/tubes: None. Lungs: The lungs are well inflated and clear. There is no evidence of pneumonia or pulm onary edema. Pleura: There is no pleural effusion or pneumothorax. Heart and mediastinum: The heart and the mediastinum are normal. Bones: No acute bony abnormality. IMPRESSION: 1. No acute cardiopulmonary abnormalities. Jose G hC M.D. Dictated by: Jose G duran M.D. on 11/08/2017 at 18:36 Electronically approved by: Jose G Ch M.D. on 11/08/2017 at 18:36 Dictated By: JOSE G Argueta MD 37 Transcribed By: SINAI on 11/08/171835 COPY TO: LUZ [employer] NP
== END 2019-09-27 15:53 | disposition home or self-care (01) ==
LOC: ER 03:43 → ERHOLD 04:56 → MED/SURG2 06:25
PROVIDERS: ADMIT Internal Medicine; ATTEND Internal Medicine
DX: C67.9 Malignant neoplasm of bladder, unspecified (principal); N40.1 Benign prostatic hyperplasia with lower urinary tract symptoms; R33.8 Other retention of urine; R31.0 Gross hematuria; I10 Essential (primary) hypertension; I25.10 Atherosclerotic heart disease of native coronary artery without angina pectoris; E78.5 Hyperlipidemia, unspecified; Z85.038 Personal history of other malignant neoplasm of large intestine; Z85.46 Personal history of malignant neoplasm of prostate; Z98.0 Intestinal bypass and anastomosis status; N30.41 Irradiation cystitis with hematuria; Y84.2 Radiological procedure and radiotherapy as the cause of abnormal reaction of the patient, or of later complication, without mention of misadventure at the time of the procedure; Z88.1 Allergy status to other antibiotic agents; Z88.8 Allergy status to other drugs, medicaments and biological substances
CPT/HCPCS: 36415 ×2; 52234; 55700; 80053; 81001; 82550; 82553; 82948 ×2; 84484; 85025; 85610; 85730; 88305; 99284; C1758; G0378 ×2; J0690; J1100; J2001 ×2; J2270 ×2; J2704; J3010; Q9967; J2175

== ENCOUNTER 2021-09-15 20:41 | Observation (INO) | payer MEDICARE, OTHER ==
[~2021-09-15] VITALS: Ht 165.1 cm; Wt 81.4 kg
[~2021-09-15 20:41] MED LIST changes: +CIPRO500 MG PO; +DEPAKOTE ER250 MG PO; +DEPAKOTE SPRIN125 MG; +DETROL LA4 MG PO; +GLIMEPIRIDE2 MG PO; +LAMOTRIGINE100 MG PO; +LISINOPRIL10 MG PO; +NORVASC5 MG PO; +RISPERIDONE0.5 MG PO; +SENNA LAX8.6 MG; +ZOFRAN4 MG PO
[2021-09-15] MEDS ORDERED: ONDANSETRON HCL INJ 2MG/ML 2ML 2 MG/ML VIAL IV STA (20:54)
[2021-09-15] MEDS: SODIUM CHLORIDE 0.9% 1000ML 1,000 ML IV SCH (21:45)
[2021-09-15 21:53] LABS: BASOPHILS % 0.5 % (0.0-1.0); EOSINOPHILS % 0.5 % (0.0-6.0); HEMATOCRIT 49.4 % (38.2-49.6); HEMOGLOBIN 16.1 g/dL (14.0-18.0); LYMPHOCYTES # (AUTO) 0.4 (1.0-3.2); MEAN CORPUSCULAR HEMOGLOBIN 29.4 pg (28-32); MEAN CORPUSCULAR HGB CONC 32.6 g/dL (31-35); MEAN CORPUSCULAR VOLUME 90.1 fL (81-99); MONOCYTES # (AUTO) 0.4 (0.2-0.8); NEUTROPHILS # (AUTO) 5.1 (2.1-6.9); PLATELET COUNT 253 x10e3/uL (140-360); RED BLOOD COUNT 5.48 x10e6/uL (4.3-5.7); RED CELL DISTRIBUTION WIDTH 13.5 % (11.7-14.4)
[2021-09-15 22:02] LABS: INR 0.9; PARTIAL THROMBOPLASTIN TIME 26.5 seconds (23.8-35.5); PROTHROMBIN TIME 12.9 seconds (11.9-14.5)
[2021-09-15 22:09] LABS: ALBUMIN 4.2 g/dL (3.5-5.0); ALBUMIN/GLOBULIN RATIO 1.2 (0.8-2.0); ANION GAP 13.9 mmol/L (8-16); CALCIUM 9.7 mg/dL (8.4-10.2); CREATININE, SERUM 2.2 mg/dL (0.72-1.25); POTASSIUM 4.9 mmol/L (3.5-5.1)
[2021-09-15 22:19] LABS: AMYLASE 214 U/L (25-125); LIPASE 22 U/L (8-78)
[2021-09-16] MEDS ORDERED: SODIUM CHLORIDE 0.9% 1000ML 1,000 ML IV SCH (01:15)
[2021-09-16] MEDS: SODIUM CHLORIDE 0.9% 1000ML 1,000 ML IV SCH ×2 (05:00→15:11)
[2021-09-16 06:04] LABS: HEMATOCRIT 44.9 % (38.2-49.6); HEMOGLOBIN 14.8 g/dL (14.0-18.0)
[2021-09-16] MEDS ORDERED: FAMOTIDINE 20 MG/2 ML VIAL IV STA (10:04)
[2021-09-16] MEDS ORDERED: ONDANSETRON HCL INJ 2MG/ML 2ML 2 MG/ML VIAL IV PRN (10:15)
[2021-09-16] MEDS ORDERED: ACETAMINOPHEN 1000 MG/100 ML IV PRN (10:15)
[2021-09-16] MEDS ORDERED: FENTANYL CITRATE/PF 100MCG/2 ML INJ ONE (12:26)
[2021-09-16] MEDS ORDERED: PROPOFOL IV EMULSION 10 MG/ML 20 ML VIAL ONE (12:52)
[2021-09-16] MEDS ORDERED: SEVOFLURANE INHAL SOLN 250 ML PEN BTL ONE (12:52)
[2021-09-16] MEDS ORDERED: ONDANSETRON HCL INJ 2MG/ML 2ML 2 MG/ML VIAL ONE (12:52)
[2021-09-16] MEDS ORDERED: LIDOCAINE HCL 2% LOCAL INJ 5 ML SDV VIAL INJ ONE (12:52)
[2021-09-16] MEDS ORDERED: SUCCINYLCHOLINE CHLORIDE 20 MG/ML 10ML VIAL ONE (12:52)
[2021-09-16] MEDS ORDERED: ROCURONIUM BROMIDE 10 MG/ML 5ML VIAL IV ONE (12:52)
[2021-09-16] MEDS ORDERED: EPHEDRINE SULFATE INJ 50 MG/ML VIAL ONE (12:52)
[2021-09-16] MEDS ORDERED: POVIDONE IODINE 0.05% 0.05 % ML PO ONE (12:52)
[2021-09-16 13:57] VITALS: BP 148/97
[2021-09-16 13:58] VITALS: BP 141/95
[2021-09-16 14:00] VITALS: BP 141/95
[2021-09-16 15:59] VITALS: BP 131/54
[2021-09-16 16:19] LABS: HEMATOCRIT 43.8 % (38.2-49.6)
[2021-09-16 20:00] VITALS: BP 131/93
[2021-09-16 21:00] VITALS: BP 131/93
[2021-09-17] VITALS: BP 144/104
[2021-09-17] MEDS ORDERED: GABAPENTIN300 MG PO (00:36)
[2021-09-17 04:00] VITALS: BP 160/100
[2021-09-17] MEDS: SODIUM CHLORIDE 0.9% 1000ML 1,000 ML IV SCH (04:14)
[2021-09-17 04:58] LABS: BASOPHILS % 0.6 % (0.0-1.0); EOSINOPHILS # (AUTO) 0.1 (0.0-0.4); EOSINOPHILS % 1.4 % (0.0-6.0); HEMATOCRIT 41.5 % (38.2-49.6); HEMOGLOBIN 13.6 g/dL (14.0-18.0); LYMPHOCYTES # (AUTO) 0.7 (1.0-3.2); LYMPHOCYTES % 14.5 % (18.0-39.1); MEAN CORPUSCULAR HEMOGLOBIN 29.6 pg (28-32); MEAN CORPUSCULAR HGB CONC 32.8 g/dL (31-35); MEAN CORPUSCULAR VOLUME 90.4 fL (81-99); MONOCYTES # (AUTO) 0.4 (0.2-0.8); MONOCYTES % 7.1 % (4.4-11.3); NEUTROPHILS # (AUTO) 3.8 (2.1-6.9); NEUTROPHILS % 75.8 % (38.7-80.0); PLATELET COUNT 215 x10e3/uL (140-360); RED BLOOD COUNT 4.59 x10e6/uL (4.3-5.7); RED CELL DISTRIBUTION WIDTH 13.4 % (11.7-14.4)
[2021-09-17 05:24] LABS: ANION GAP 12.3 mmol/L (8-16); CALCIUM 7.9 mg/dL (8.4-10.2); CREATININE, SERUM 1.73 mg/dL (0.72-1.25); POTASSIUM 4.3 mmol/L (3.5-5.1)
[2021-09-17] MEDS ORDERED: ASPIRIN81 MG PO (06:42)
[2021-09-17] MEDS ORDERED: ABILIFY20 MG PO (06:42)
[2021-09-17] MEDS ORDERED: VENLAFAXINE HCL75 M2 PO (06:42)
[2021-09-17] MEDS ORDERED: COLACE100 MG PO (06:45)
[2021-09-17] MEDS ORDERED: SUCRALFATE 1 GM TAB PO SCH (07:30)
[2021-09-17 07:47] VITALS: BP 163/100
[2021-09-17 08:05] VITALS: BP 163/100
[2021-09-17] MEDS ORDERED: FAMOTIDINE 20 MG/2 ML VIAL IV SCH (09:00)
[2021-09-17] MEDS ORDERED: ARIPIPRAZOLE 5 MG TABLET PO SCH (09:45)
[2021-09-17] MEDS ORDERED: VENLAFAXINE HCL 75 MG CAPCR PO SCH (09:45)
[2021-09-17] MEDS ORDERED: AMLODIPINE BESYLATE 5 MG TAB PO SCH (09:45)
[2021-09-17] MEDS ORDERED: TOLTERODINE TARTRATE 2 MG CAPCR PO SCH (10:00)
[2021-09-17] MEDS ORDERED: PEPCID20 MG PO (10:36)
[2021-09-17] MEDS ORDERED: MIRALAX17 GM PO (10:37)
[2021-09-17] MEDS ORDERED: CARAFATE1 GM PO (10:37)
[2021-09-17] MEDS ORDERED: ONDANSETRON ODT4 MG PO (10:39)
[2021-09-17] MEDS ORDERED: ZENPEP DR 10,01 EACH (10:40)
[2021-09-17] MEDS ORDERED: GABAPENTIN 300 MG CAP PO SCH (15:00)
[2021-09-17] MEDS ORDERED: PRAVASTATIN 20 MG TAB PO SCH (21:00)
[2021-09-17] MEDS ORDERED: LAMOTRIGINE 100 MG TAB PO SCH (21:00)
[2021-09-18] MEDS ORDERED: GLIMEPIRIDE 2 MG TAB PO SCH (08:00)
== END 2021-09-17 11:24 | disposition home or self-care (01) ==
LOC: ER 20:54 → ERHOLD 09-16 01:16 → UNDOADMOB 09-16 01:16 → MED/SURG2 09-16 13:17
PROVIDERS: ADMIT Internal Medicine; ATTEND Internal Medicine
DX: K26.4 Chronic or unspecified duodenal ulcer with hemorrhage (principal); K20.91 Esophagitis, unspecified with bleeding; K29.71 Gastritis, unspecified, with bleeding; Z20.822 Contact with and (suspected) exposure to COVID-19; Z01.818 Encounter for other preprocedural examination; E11.22 Type 2 diabetes mellitus with diabetic chronic kidney disease; I12.9 Hypertensive chronic kidney disease with stage 1 through stage 4 chronic kidney disease, or unspecified chronic kidney disease; N18.30 Chronic kidney disease, stage 3 unspecified; Z79.899 Other long term (current) drug therapy; Z85.46 Personal history of malignant neoplasm of prostate; Z85.528 Personal history of other malignant neoplasm of kidney
CPT/HCPCS: 36415 ×3; 43239; 74176; 80048; 80053; 82150; 82948; 83690; 85014; 85018; 85025 ×2; 85610; 85730; 86850; 86900; 88305; 88312; 93005; 99284; G0378 ×2; J0330; J2001; J2405 ×2; J2704; J3010; J7030 ×2; U0002

== ENCOUNTER 2025-01-15 22:22 | Inpatient (IN) | payer MEDICARE ==
[~2025-01-15] VITALS: Ht 165.1 cm; Wt 91.7 kg
[~2025-01-15 22:22] MED LIST changes: +ABILIFY20 MG PO; +ASPIRIN81 MG PO; +CARAFATE1 GM PO; +COLACE100 MG PO; +GABAPENTIN300 MG PO; +MIRALAX17 GM PO; +ONDANSETRON ODT4 MG PO; +PEPCID20 MG PO; +VENLAFAXINE HCL75 M2 PO; +ZENPEP DR 10,01 EACH
[2025-01-16] VITALS (10 sets, daily range): BP systolic 129–166; BP diastolic 76–103; PULSE 59–70; RESP 16–18; TEMP 97.2–98.7; O2SAT 97–100
[2025-01-16] MEDS ORDERED: SODIUM CHLORIDE FLUSH 10 ML SYR INJ PRN (03:00)
[2025-01-16] MEDS: HEPARIN SOD (PORCINE) 5,000 UNIT/ML VIAL IV ONE ×2 (05:01→05:02)
[2025-01-16] MEDS: HEPARIN SOD/DEXTROSE 5% 25000 UNIT/250 ML BAG IV SCH ×2 (05:02→15:59)
[2025-01-16] MEDS ORDERED: PIOGLITAZONE30 MG PO (05:36)
[2025-01-16] MEDS ORDERED: ELIQUIS2.5 MG PO (05:36)
[2025-01-16] MEDS ORDERED: TRAZODONE HCL100 MG PO (05:36)
[2025-01-16] MEDS ORDERED: MULTI-VITAMIN1 EACH PO (05:36)
[2025-01-16] MEDS ORDERED: ZETIA10 MG PO (05:36)
[2025-01-16 07:01] LABS: PROTHROMBIN TIME 13.8 seconds (11.9-14.5)
[2025-01-16] MEDS ORDERED: DEXTROSE 50% SYRINGE 50 ML IV PRN (08:30)
[2025-01-16] MEDS ORDERED: HYDROCODONE/APAP 5MG-325MG TAB PO PRN (08:30)
[2025-01-16] MEDS: GABAPENTIN 300 MG CAP PO SCH (09:17)
[2025-01-16] MEDS: DOCUSATE SODIUM 100 MG CAP PO SCH (09:17)
[2025-01-16] MEDS: FAMOTIDINE 20 MG TAB PO SCH (09:17)
[2025-01-16] MEDS: INSULIN LISPRO 100 UNIT/1 ML 3ML VIAL SQ SCH (12:20)
[2025-01-17] MEDS: HEPARIN SOD/DEXTROSE 5% 25000 UNIT/250 ML BAG IV SCH (03:58)
[2025-01-17 05:11] LABS: BASOPHILS # (AUTO) 0.1 (0.0-0.1); BASOPHILS % 0.9 % (0.0-1.0); EOSINOPHILS # (AUTO) 0.2 (0.0-0.4); EOSINOPHILS % 3.3 % (0.0-6.0); HEMATOCRIT 42.4 % (38.2-49.6); HEMOGLOBIN 13.8 g/dL (14.0-18.0); LYMPHOCYTES # (AUTO) 1.1 (1.0-3.2); LYMPHOCYTES % 15.7 % (18.0-39.1); MEAN CORPUSCULAR HEMOGLOBIN 30.3 pg (28-32); MEAN CORPUSCULAR HGB CONC 32.5 g/dL (31-35); MEAN CORPUSCULAR VOLUME 93.2 fL (81-99); MONOCYTES # (AUTO) 0.7 (0.2-0.8); MONOCYTES % 10.2 % (4.4-11.3); NEUTROPHILS # (AUTO) 4.7 (2.1-6.9); NEUTROPHILS % 68.7 % (38.7-80.0); PLATELET COUNT 218 x10e3/uL (140-360); RED BLOOD COUNT 4.55 x10e6/uL (4.3-5.7); RED CELL DISTRIBUTION WIDTH 14.2 % (11.7-14.4); WHITE BLOOD COUNT 6.88 x10e3/uL (4.8-10.8)
[2025-01-17 05:38] LABS: ANION GAP 11.7 mmol/L (8-16); CALCIUM 9.2 mg/dL (8.4-10.2); CREATININE, SERUM 2.1 mg/dL (0.72-1.25); POTASSIUM 4.7 mmol/L (3.5-5.1)
[2025-01-17 06:00] LABS: MAGNESIUM 1.9 MG/DL (1.3-2.1); PHOSPHORUS 3.2 MG/DL (2.3-4.7)
[2025-01-17 06:02] VITALS: BP 113/89; PULSE 56; RESP 18; TEMP 98; O2SAT 98
[2025-01-17 06:21] LABS: THYROID STIMULATING HORMONE 1.531 uIU/mL (0.350-4.940)
[2025-01-17 08:05] VITALS: BP 142/97; PULSE 66; RESP 18; TEMP 97.6; O2SAT 99
[2025-01-17 09:52] VITALS: BP 142/97; PULSE 66; RESP 18; TEMP 97.6; O2SAT 99
[2025-01-17 11:55] VITALS: BP 138/84; PULSE 56; RESP 16; TEMP 97.6; O2SAT 100
[2025-01-17 17:26] VITALS: BP 149/93; PULSE 57; RESP 18; TEMP 97.5; O2SAT 99
[2025-01-17 20:00] VITALS: BP 149/93; PULSE 57; RESP 18; TEMP 97.5; O2SAT 99
[2025-01-17] MEDS: HYDRALAZINE HCL 20 MG/ML VIAL IV PRN (21:47)
[2025-01-18 00:35] VITALS: BP 144/96; PULSE 75; RESP 18; TEMP 97.9; O2SAT 100
[2025-01-18 04:24] VITALS: BP 120/86; PULSE 92; RESP 18; TEMP 97.5; O2SAT 100
[2025-01-18] MEDS: HEPARIN SOD/DEXTROSE 5% 25000 UNIT/250 ML BAG IV SCH (04:48)
[2025-01-18 07:40] LABS: ANION GAP 13.4 mmol/L (8-16); CALCIUM 9.3 mg/dL (8.4-10.2); CREATININE, SERUM 2.17 mg/dL (0.72-1.25); POTASSIUM 4.4 mmol/L (3.5-5.1)
[2025-01-18 07:49] VITALS: BP 135/98; PULSE 65; RESP 16; TEMP 97.6; O2SAT 100
[2025-01-18 08:22] VITALS: BP 135/98; PULSE 65; RESP 16; TEMP 97.6; O2SAT 100
[2025-01-18 11:57] VITALS: BP 152/110; PULSE 65; RESP 18; TEMP 97.7; O2SAT 100
[2025-01-18 16:30] VITALS: BP 149/100; PULSE 82; RESP 20; TEMP 98; O2SAT 98
== END 2025-01-18 18:26 | disposition short-term general hospital (02) | DRG 301 ==
LOC: FSED 23:33 → ERHOLD 01-16 02:52 → MED/SURG 01-16 04:05
PROVIDERS: ADMIT Internal Medicine; ATTEND Internal Medicine
DX: I82.413 Acute embolism and thrombosis of femoral vein, bilateral (principal); I82.813 Embolism and thrombosis of superficial veins of lower extremities, bilateral; I82.442 Acute embolism and thrombosis of left tibial vein; I12.9 Hypertensive chronic kidney disease with stage 1 through stage 4 chronic kidney disease, or unspecified chronic kidney disease; E11.22 Type 2 diabetes mellitus with diabetic chronic kidney disease; E78.5 Hyperlipidemia, unspecified; N18.9 Chronic kidney disease, unspecified; M54.9 Dorsalgia, unspecified; T45.516A Underdosing of anticoagulants, initial encounter; Z91.120 Patient's intentional underdosing of medication regimen due to financial hardship; Z79.01 Long term (current) use of anticoagulants; Z79.84 Long term (current) use of oral hypoglycemic drugs; Z90.5 Acquired absence of kidney; Z85.048 Personal history of other malignant neoplasm of rectum, rectosigmoid junction, and anus; Z85.46 Personal history of malignant neoplasm of prostate; Z85.50 Personal history of malignant neoplasm of unspecified urinary tract organ; Z90.49 Acquired absence of other specified parts of digestive tract; Z90.6 Acquired absence of other parts of urinary tract; Z92.3 Personal history of irradiation; Z92.21 Personal history of antineoplastic chemotherapy; Z88.8 Allergy status to other drugs, medicaments and biological substances
CPT/HCPCS: 36415; 71046; 71250; 74176; 80048; 80076; 81003; 82553; 82948; 83036; 83735; 83880; 84100; 84443; 84484; 85025; 85610; 85730; 93970; 99284; J0360; J1644